=== PATIENT | male | born 1990 | race Caucasian/White ===

== ENCOUNTER 2019-12-05 13:56 | Emergency (ER) | payer SELFPAY ==
[2019-12-05 13:59] VITALS: BP 127/71; PULSE 90; RESP 20; TEMP 36.8; O2SAT 100
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
[2019-12-05] MEDS: LIDO 2%/EPINEPHRINE 1:100,000 20 ML VIAL (14:26)
--- NOTE | 2019-12-05 14:27 | PC.NURSE ---
Pt educated on recommendation for tetanus vaccine, declined. EDP aware.
[2019-12-05 14:45] VITALS: BP 130/74; PULSE 77; RESP 12; O2SAT 99
== END 2019-12-05 14:49 | disposition home or self-care (01) ==
PROVIDERS: Emergency Provider Family Medicine; PCP Internal Medicine
DX: S81.811A Laceration without foreign body, right lower leg, initial encounter (principal); W22.8XXA Striking against or struck by other objects, initial encounter
CPT/HCPCS: 12004; 99283

== ENCOUNTER 2024-12-22 18:11 | Emergency (ER) | payer OTHER, SELFPAY ==
[2024-12-22 18:37] VITALS: BP 134/75; PULSE 70; RESP 16; TEMP 36.7; O2SAT 98
--- NOTE | 2024-12-22 20:02 | ED.EAR ---
HPI - Ear Problem General Chief complaint: Ear Stated complaint: right ear pain Time Seen by Provider: 12/22/24 19:15 Source: patient and RN notes reviewed Mode of arrival: ambulatory Limitations: no limitations History of Present Illness HPI Narrative: 34-year-old male presents [facility] complaining of right ear pain for 3 days. Patient reports having decreased hearing as well. Patient denies any upper respiratory symptoms. Patient denies any pain to the left ear. Related Data Home Medications ?Medication ?Instructions ?Recorded ?Confirmed ?Last Taken ?Type omeprazole magnesium 20 mg 20 mg PO DAILY 12/22/24 12/22/24 Unknown History tablet,delayed release (Prilosec OTC) Allergies Allergy/AdvReac Type Severity Reaction Status Date / Time No Known Allergies Allergy Verified 12/22/24 18:34 Review of Systems Review of Systems: CONSTITUTIONAL: Denies fever, chills, or sweats. EYES: Denies visual changes, redness, or discharge. ENT: Denies rhinorrhea, congestion, sore throat. Positive for otalgia and decreased hearing. CARDIOVASCULAR: Denies chest pain, palpitations, or edema. RESPIRATORY: Denies cough or dyspnea. GASTROINTESTINAL: Denies abdominal pain, nausea, vomiting, or diarrhea. GENITOURINARY: Denies dysuria or hematuria. SKIN: Denies rash or itching. MUSCULOSKELETAL: Denies back pain, joint pain, or myalgia. NEUROLOGIC: Denies headache, numbness, or weakness. PSYCHIATRIC: Denies anxiety or depression. All other systems reviewed are negative, except as documented in HPI. PMFSH Comments At the time of my signature, I reviewed and agree with the nursing past medical, surgical, social, and family history. There is no relevant family history pertinent to the patient complaint. Exam Narrative: GENERAL: This is a well-nourished, well-developed adult, in no apparent distress. They are non ill-appearing, nontoxic appearing. HEAD: normocephalic, atraumatic. EYES: Sclera clear/white. Conjunctiva normal. Vision is grossly intact. Extraocular movements intact EARS: External ears normal, auditory canals clear and without drainage, right TM erythematous and bulging with suppuration. Left TM moe translucent without erythema, drainage, or swelling. Small perforation is present. Hearing grossly intact. NOSE: External nose normal with no obvious nasal discharge, nasal turbinates without redness, no rhinorrhea. THROAT: Mucous membranes moist, posterior pharynx clear, without erythema or swelling. Uvula midline. NECK: Neck supple, non-tender without lymphadenopathy, masses or thyromegaly. CARDIOVASCULAR: Regular rate and rhythm without murmurs, gallops, or rubs. RESPIRATORY: Clear to auscultation. Breath sounds equal bilaterally. No wheezes, rales, or rhonchi. SKIN: warm, Dry, intact with no suspicious lesions or rash, good texture and turgor. NEURO: awake, alert, and oriented to person, place and time. There were no obvious focal neurologic abnormalities. EXTREMITIES: No joint tenderness, effusion, or edema noted. BACK: Nontender without deformity. No CVA tenderness. Course Course Emergency Course: Portions of this record may have been created with voice recognition software Level of Care: Express Care Visit Vital Signs Vital signs: Vital Signs Temperature 98.1 F 12/22/24 18:37 Pulse Rate 70 12/22/24 18:37 Respiratory Rate 16 12/22/24 18:37 Blood Pressure 134/75 12/22/24 18:37 Pulse Oximetry 98 12/22/24 18:37 Oxygen Delivery Room Air 12/22/24 18:37 Temperature 98.1 F 12/22/24 18:37 Pulse Rate 70 12/22/24 18:37 Respiratory Rate 16 12/22/24 18:37 Blood Pressure 134/75 12/22/24 18:37 Pulse Oximetry 98 12/22/24 18:37 Oxygen Delivery Room Air 12/22/24 18:37 Reviewed Medical Decision Making MDM Narrative Medical decision making narrative: Patient has a right otitis media. Appears in the past patient has perforated his left tympanic membrane it appears to be healing. Patient reports having hearing problems in his left ear chronically. He has never seen an ENT. Recommend patient to follow-up with ENT about his left tympanic membrane perforation. Will treat empirically for the right-sided otitis media with amoxicillin. Discussed physical exam findings. Advised supportive measures and signs/symptoms to go to the ER. Pt is appropriate for outpt treatment and f/u. Vital Signs Vital Signs: Vital Signs Temperature 98.1 F 12/22/24 18:37 Pulse Rate 70 12/22/24 18:37 Respiratory Rate 16 12/22/24 18:37 Blood Pressure 134/75 12/22/24 18:37 Pulse Oximetry 98 05/12/25 18:37 Oxygen Delivery Room Air 12/22/24 18:37 Temperature 98.1 F 12/22/24 18:37 Pulse Rate 70 12/22/24 18:37 Respiratory Rate 16 12/22/24 18:37 Blood Pressure 134/75 12/22/24 18:37 Pulse Oximetry 98 12/22/24 18:37 Oxygen Delivery Room Air 12/22/24 18:37 Critical Care Time Critical Care Time Critical Care Time: No Discharge Plan Discharge Clinical Impression: Otitis media Qualifiers: Otitis media type: suppurative Chronicity: acute Laterality: right Recurrence: non-recurrent Spontaneous tympanic membrane rupture: without spontaneous rupture Qualified Code(s): H66.001 - Acute suppurative otitis media without spontaneous rupture of ear drum, right ear Perforated eardrum Qualifiers: Laterality: left Qualified Code(s): H72.92 - Unspecified perforation of tympanic membrane, left ear Patient Disposition: Home Condition: Stable Instructions: Antibiotic Form, Ruptured Eardrum (ED), Ear Infection (AC) Additional Instructions: Appears to have an infection of the right ear. It also appears that in the past you have ruptured her left ear drum. However the left ear drum does not appear infected today. Take antibiotics as directed. Recommend antihistamine such as Benadryl, Zyrtec or Barbara for sinus congestion Flonase nasal spray, 1 spray in each nostril once daily until symptoms improve Symptomatic treatment includes: rest, fluids, and increase humidity of the air at home. Tylenol 1000mg every 8 hours as needed to reduce fever, pain Please schedule a follow-up visit with your personal physician for further evaluation and treatment within 3-5days. Please follow-up with ENT for further evaluation of your ruptured eardrum If your symptoms persist, change or worsen significantly, go to the emergency department for further evaluation. Patient Language: Azeri Prescriptions: New amoxicillin 875 mg tablet 875 mg PO Q12H 10 Days Qty: 20 0RF No Action omeprazole magnesium [Prilosec OTC] 20 mg tablet,delayed release (DR/EC) 20 mg PO DAILY ibuprofen 600 mg tablet 600 mg PO TID PRN (Reason: pain) Qty: 30 0RF Follow-up/Referrals: Roberto Rasmussen MD [Physician] - PHYSICIAN,BOILER/CHILLER TECHNICIAN [Primary Care Provider] - Time of Disposition: 19:21
== END 2024-12-22 19:25 | disposition home or self-care (01) ==
DX: H66.001 Acute suppurative otitis media without spontaneous rupture of ear drum, right ear (principal); H72.92 Unspecified perforation of tympanic membrane, left ear; Z86.718 Personal history of other venous thrombosis and embolism
CPT/HCPCS: 99213; G0463